=== PATIENT | female | born 1965 | race Caucasian/White ===

== ENCOUNTER 2016-05-29 08:35 | Emergency (ER) | payer MEDICAID ==
[~2016-05-29] VITALS: Ht 167.6 cm; Wt 78.1 kg
[~2016-05-29 08:35] MED LIST: EFFE25TA; NORCO 325 MG-51 TAB PO; PREDNISONE20 MG PO; PROZAC 20MG20 MG PO; SEROQUEL 1100 MG/TAB PO; SINGULAIR 110 MG/TAB PO; SPRINTEC 35 MCG1 TAB PO; ULTRAM 50MG TAB50 MG PO; ZOFRAN8 MG PO
[2016-05-29 08:40] VITALS: BP 134/90; PULSE 91; TEMP 98
[2016-05-29] MEDS ORDERED: DOXYCYCLINE 10100 MG PO (09:12)
[2016-05-29] MEDS ORDERED: TUSS PO (09:12)
[2016-05-29] MEDS ORDERED: PREDNISONE20 MG PO (09:12)
[2016-05-29] MEDS ORDERED: BRINTELLIX5 PO (09:23)
[2016-05-29] MEDS ORDERED: ZANTAC 150MG T150 MG PO (09:23)
[2016-05-29] MEDS ORDERED: AMBIEN 5MG TABLE5 MG PO (09:23)
[2016-05-29] MEDS ORDERED: ABILIFY2 MG PO (09:24)
[2016-05-29] MEDS ORDERED: MINIPRESS2 MG PO (09:24)
== END 2016-05-29 09:56 | disposition home or self-care (01) ==
LOC: COL.ER 08:35
DX: J44.0 Chronic obstructive pulmonary disease with (acute) lower respiratory infection (principal); J20.9 Acute bronchitis, unspecified; J44.1 Chronic obstructive pulmonary disease with (acute) exacerbation; F17.210 Nicotine dependence, cigarettes, uncomplicated; J45.909 Unspecified asthma, uncomplicated; N93.9 Abnormal uterine and vaginal bleeding, unspecified
CPT/HCPCS: J7512

== ENCOUNTER 2016-06-15 16:28 | Emergency (ER) | payer MEDICAID ==
[~2016-06-15] VITALS: Ht 167.6 cm; Wt 77.8 kg
[~2016-06-15 16:28] MED LIST changes: +ABILIFY2 MG PO; +AMBIEN 5MG TABLE5 MG PO; +BRINTELLIX5 PO; +DOXYCYCLINE 10100 MG PO; +MINIPRESS2 MG PO; +TUSS PO; +ZANTAC 150MG T150 MG PO
[2016-06-15 16:31] VITALS: BP 110/96; TEMP 99.6
[2016-06-15 16:54] LABS: PH 5 (5-8); SQUAMOUS EPITHELIAL 0-2 /hpf; URINE APPEARANCE Hazy; URINE BACTERIA None Seen /hpf; URINE BILIRUBIN Negative (NEGATIVE); URINE BLOOD 1+ (NEGATIVE); URINE COLOR Yellow; URINE GLUCOSE Negative (NEGATIVE); URINE KETONE Negative (NEGATIVE); URINE UROBILINOGEN Negative (NEGATIVE); URINE WBC 0-2 /hpf
[2016-06-15 17:10] LABS: BASO % 0.4 % (0.0-2.0); EOS # 0.1 (0.0-0.7); EOS % 0.6 % (0-4.0); GRAN # 5.3 (1.4-6.5); GRAN % 62.3 % (42.2-75.2); HEMOGLOBIN 13.2 g/dl (12.5-16.0); LYMPH # 2.7 (1.2-3.4); LYMPH % 31.6 % (20.0-51.0); MEAN CELL VOLUME 93 fl (80.0-100.0); MEAN CORPUSCULAR HEMOGLOBIN 32 pg (27.0-31.0); MEAN CORPUSCULAR HGB CONC 35 g/dl (33.0-37.0); MEAN PLATELET VOLUME 8.8 fl (7.4-10.4); MONO # 0.4 (0.1-0.6); MONO % 4.7 % (1.7-9.3); PLATELET COUNT 239 K/mm3 (130-400); RED BLOOD COUNT 4.07 M/mm3 (4.10-5.30); REDCELL DISTRIBUTION WIDTH-CV 12.5 % (11.5-14.5); WHITE BLOOD COUNT 8.5 K/mm3 (4.8-10.8)
[2016-06-15 17:19] LABS: ADJUSTED CALCIUM 8.6 mg/dL (8.4-10.2); ALBUMIN 4.2 gm/dL (3.5-5.0); BILIRUBIN,TOTAL 0.8 mg/dL (0.0-1.0); CALCIUM 8.8 mg/dL (8.4-10.2); CREATININE, serum 0.61 mg/dL (0.52-1.25); POTASSIUM 4.1 mmol/L (3.4-5.0); TOTAL PROTEIN 7.2 gm/dL (6.4-8.2)
[2016-06-15 17:24] LABS: INFLUENZA B NEGATIVE
[2016-06-15] MEDS ORDERED: PRILOSEC 20MG20 MG PO ×2 (17:39→17:48)
[2016-06-15] MEDS ORDERED: ZOFRAN ODT4 MG PO ×2 (17:39→17:48)
[2016-06-15 17:49] VITALS: PULSE 72
== END 2016-06-15 17:50 | disposition home or self-care (01) ==
LOC: COL.ER 16:28
PROVIDERS: Family Medicine
DX: K29.70 Gastritis, unspecified, without bleeding (principal); F17.210 Nicotine dependence, cigarettes, uncomplicated
CPT/HCPCS: J2405; J7030

== ENCOUNTER 2016-06-25 17:25 | Emergency (ER) | payer MEDICAID ==
[~2016-06-25] VITALS: Ht 167.6 cm; Wt 79.4 kg
[~2016-06-25 17:25] MED LIST changes: +PRILOSEC 20MG20 MG PO; +ZOFRAN ODT4 MG PO
[2016-06-25 17:28] VITALS: TEMP 97.6
[2016-06-25] MEDS ORDERED: BRINTELLIX10 PO (18:13)
[2016-06-25] MEDS ORDERED: ATIVAN 0.50.5 MG/TAB PO (18:21)
[2016-06-25 18:36] VITALS: BP 128/86; PULSE 86
== END 2016-06-25 18:36 | disposition home or self-care (01) ==
LOC: COL.ER 17:25
DX: F41.9 Anxiety disorder, unspecified (principal); R51 Headache; F17.210 Nicotine dependence, cigarettes, uncomplicated
CPT/HCPCS: J1885

== ENCOUNTER 2016-06-30 19:51 | Emergency (ER) | payer MEDICAID ==
[~2016-06-30] VITALS: Ht 167.6 cm; Wt 79.9 kg
[~2016-06-30 19:51] MED LIST changes: +ATIVAN 0.50.5 MG/TAB PO; +BRINTELLIX10 PO
[2016-06-30 19:55] VITALS: BP 118/64; PULSE 88; TEMP 97.8
== END 2016-06-30 21:07 | disposition left against medical advice (07) ==
LOC: COL.ER 19:51
DX: R05 Cough (principal)

== ENCOUNTER 2016-07-01 23:59 | Emergency (ER) | payer MEDICAID ==
[~2016-07-01] VITALS: Ht 167.6 cm; Wt 78.1 kg
[2016-07-02] VITALS: TEMP 98.8
[2016-07-02] MEDS ORDERED: PREDNISONE20 MG PO (01:23)
[2016-07-02] MEDS ORDERED: ATIVAN 1MG T1 MG/TAB PO (01:32)
[2016-07-02 01:35] VITALS: BP 114/76; PULSE 75
== END 2016-07-02 01:40 | disposition home or self-care (01) ==
LOC: COL.ER 23:59
DX: J20.9 Acute bronchitis, unspecified (principal); F17.210 Nicotine dependence, cigarettes, uncomplicated; J45.909 Unspecified asthma, uncomplicated; F41.9 Anxiety disorder, unspecified
CPT/HCPCS: J7512

== ENCOUNTER 2016-07-15 10:30 | Emergency (ER) | payer MEDICAID ==
[~2016-07-15] VITALS: Ht 167.6 cm; Wt 78.2 kg
[~2016-07-15 10:30] MED LIST changes: +ATIVAN 1MG T1 MG/TAB PO
[2016-07-15 10:33] VITALS: BP 123/74; PULSE 81; TEMP 98
[2016-07-15 11:14] LABS: BASO % 0.4 % (0.0-2.0); EOS # 0.1 (0.0-0.7); EOS % 0.9 % (0-4.0); GRAN # 7.7 (1.4-6.5); GRAN % 74.4 % (42.2-75.2); HEMATOCRIT 42.8 % (37.0-47.0); HEMOGLOBIN 14.8 g/dl (12.5-16.0); LYMPH # 2.1 (1.2-3.4); LYMPH % 20.4 % (20.0-51.0); MEAN CELL VOLUME 93 fl (80.0-100.0); MEAN CORPUSCULAR HEMOGLOBIN 32 pg (27.0-31.0); MEAN CORPUSCULAR HGB CONC 35 g/dl (33.0-37.0); MEAN PLATELET VOLUME 8.7 fl (7.4-10.4); MONO # 0.4 (0.1-0.6); MONO % 3.7 % (1.7-9.3); PLATELET COUNT 220 K/mm3 (130-400); WHITE BLOOD COUNT 10.4 K/mm3 (4.8-10.8)
[2016-07-15] MEDS ORDERED: SEROQUEL50 MG PO (11:17)
[2016-07-15 11:41] LABS: ADJUSTED CALCIUM 9.2 mg/dL (8.4-10.2); ALBUMIN 4.2 gm/dL (3.5-5.0); BILIRUBIN,TOTAL 0.7 mg/dL (0.0-1.0); CALCIUM 9.4 mg/dL (8.4-10.2); CREATININE, serum 0.75 mg/dL (0.52-1.25); POTASSIUM 4.1 mmol/L (3.4-5.0); TOTAL PROTEIN 6.9 gm/dL (6.4-8.2)
[2016-07-15] MEDS ORDERED: PHENERGAN 25 TA25 MG PO (12:18)
== END 2016-07-15 12:33 | disposition home or self-care (01) ==
LOC: COL.ER 10:30
PROVIDERS: Physician Assistant
DX: G43.909 Migraine, unspecified, not intractable, without status migrainosus (principal); R11.2 Nausea with vomiting, unspecified; R19.7 Diarrhea, unspecified
CPT/HCPCS: J1885; J2060; J2550; J7030

== ENCOUNTER 2016-08-06 23:24 | Emergency (ER) | payer MEDICAID ==
[~2016-08-06] VITALS: Ht 165.1 cm; Wt 80.5 kg
[~2016-08-06 23:24] MED LIST changes: +PHENERGAN 25 TA25 MG PO; +SEROQUEL50 MG PO
[2016-08-06 23:28] VITALS: BP 99/52; TEMP 97.5
[2016-08-07] MEDS ORDERED: PHENERGAN 25 TA25 MG PO (00:08)
[2016-08-07 00:34] VITALS: PULSE 75
== END 2016-08-07 00:34 | disposition home or self-care (01) ==
LOC: COL.ER 23:24
DX: R51 Headache (principal); R05 Cough; Z87.891 Personal history of nicotine dependence; F41.9 Anxiety disorder, unspecified; J44.9 Chronic obstructive pulmonary disease, unspecified; F43.10 Post-traumatic stress disorder, unspecified; G43.909 Migraine, unspecified, not intractable, without status migrainosus
CPT/HCPCS: J1885; J7512

== ENCOUNTER 2016-08-26 17:35 | Emergency (ER) | payer MEDICAID ==
[~2016-08-26] VITALS: Ht 165.1 cm; Wt 79.8 kg
[2016-08-26 17:38] VITALS: TEMP 98.4
[2016-08-26] MEDS ORDERED: KLONOPIN 0.5MG0.5 MG PO (17:56)
[2016-08-26] MEDS ORDERED: PROZAC 20MG20 MG PO (17:57)
[2016-08-26 18:07] LABS: PH 5 (5-8); URINE APPEARANCE Cloudy; URINE BACTERIA None Seen /hpf; URINE BILIRUBIN Negative (NEGATIVE); URINE BLOOD 3+ (NEGATIVE); URINE COLOR Amber; URINE GLUCOSE Negative (NEGATIVE); URINE KETONE Negative (NEGATIVE); URINE RBC >50 /hpf; URINE UROBILINOGEN Negative (NEGATIVE)
[2016-08-26 18:08] LABS: URINE WBC >50 /hpf
[2016-08-26] MEDS ORDERED: MACROBID 1100 MG/CAP PO (18:15)
[2016-08-26] MEDS ORDERED: PYRIDIUM200 M1 PO (18:15)
[2016-08-26 18:47] VITALS: BP 97/63; PULSE 76
[2016-08-26] MEDS ORDERED: MOTRIN 600600 MG/TAB PO (18:47)
== END 2016-08-26 18:48 | disposition home or self-care (01) ==
LOC: COL.ER 17:35
PROVIDERS: Emergency Medicine
DX: N39.0 Urinary tract infection, site not specified (principal)
CPT/HCPCS: J1885

== ENCOUNTER 2016-09-03 11:53 | Emergency (ER) | payer MEDICAID ==
[~2016-09-03] VITALS: Ht 165.1 cm; Wt 81.2 kg
[~2016-09-03 11:53] MED LIST changes: +KLONOPIN 0.5MG0.5 MG PO; +MACROBID 1100 MG/CAP PO; +MOTRIN 600600 MG/TAB PO; +PYRIDIUM200 M1 PO
[2016-09-03 11:56] VITALS: BP 115/57; PULSE 71; TEMP 98.4
== END 2016-09-03 12:41 | disposition left against medical advice (07) ==
LOC: COL.ER 11:53
DX: N94.6 Dysmenorrhea, unspecified (principal); F32.9 Major depressive disorder, single episode, unspecified; F41.9 Anxiety disorder, unspecified; J44.9 Chronic obstructive pulmonary disease, unspecified; F17.210 Nicotine dependence, cigarettes, uncomplicated; Z85.41 Personal history of malignant neoplasm of cervix uteri; Z98.51 Tubal ligation status; Z98.890 Other specified postprocedural states

== ENCOUNTER 2016-10-07 07:47 | Emergency (ER) | payer MEDICAID ==
[~2016-10-07] VITALS: Ht 167.6 cm; Wt 80.6 kg
[2016-10-07 07:49] VITALS: BP 103/70; PULSE 72; TEMP 97.9
[2016-10-07] MEDS ORDERED: KLONOPIN 0.5MG0.5 MG PO (08:11)
== END 2016-10-07 08:29 | disposition home or self-care (01) ==
LOC: COL.ER 07:47
DX: F41.9 Anxiety disorder, unspecified (principal); T42.4X6A Underdosing of benzodiazepines, initial encounter; Z91.138 Patient's unintentional underdosing of medication regimen for other reason; K52.1 Toxic gastroenteritis and colitis; R11.0 Nausea

== ENCOUNTER 2016-10-13 16:06 | Emergency (ER) | payer MEDICAID ==
[~2016-10-13] VITALS: Ht 170.2 cm; Wt 81.5 kg
[2016-10-13 16:07] VITALS: BP 102/56; PULSE 90; TEMP 98
== END 2016-10-13 17:49 | disposition home or self-care (01) ==
LOC: COL.ER 16:06
DX: F41.9 Anxiety disorder, unspecified (principal); J44.9 Chronic obstructive pulmonary disease, unspecified; F31.9 Bipolar disorder, unspecified; F17.200 Nicotine dependence, unspecified, uncomplicated; Z85.41 Personal history of malignant neoplasm of cervix uteri

== ENCOUNTER 2016-12-19 09:57 | Emergency (ER) | payer MEDICAID ==
[~2016-12-19] VITALS: Ht 167.6 cm; Wt 82.3 kg
[2016-12-19 10:02] VITALS: BP 122/71; PULSE 70; TEMP 98.2
[2016-12-19] MEDS ORDERED: SINGULAIR 110 MG/TAB PO (10:07)
[2016-12-19] MEDS ORDERED: ATARAX50 MG PO (10:07)
[2016-12-19] MEDS ORDERED: PRIL40 PO (10:07)
[2016-12-19] MEDS ORDERED: PROZAC 20MG20 MG PO (10:07)
[2016-12-19 10:54] LABS: BASO % 0.5 % (0.0-2.0); EOS # 0.1 (0.0-0.7); EOS % 1.7 % (0-4.0); GRAN # 4.5 (1.4-6.5); GRAN % 61.2 % (42.2-75.2); HEMATOCRIT 38.2 % (37.0-47.0); HEMOGLOBIN 12.9 g/dl (12.5-16.0); LYMPH # 2.3 (1.2-3.4); LYMPH % 30.8 % (20.0-51.0); MEAN CELL VOLUME 92 fl (80.0-100.0); MEAN CORPUSCULAR HEMOGLOBIN 31 pg (27.0-31.0); MEAN CORPUSCULAR HGB CONC 34 g/dl (33.0-37.0); MEAN PLATELET VOLUME 9.1 fl (7.4-10.4); MONO # 0.4 (0.1-0.6); MONO % 5.5 % (1.7-9.3); PLATELET COUNT 280 K/mm3 (130-400); RED BLOOD COUNT 4.15 M/mm3 (4.10-5.30); REDCELL DISTRIBUTION WIDTH-CV 12.8 % (11.5-14.5); WHITE BLOOD COUNT 7.4 K/mm3 (4.8-10.8)
[2016-12-19] MEDS ORDERED: PHENERGAN 25 TA25 MG PO (11:49)
[2016-12-19 13:15] LABS: ADJUSTED CALCIUM 8.9 mg/dL (8.4-10.2); ALBUMIN 4.4 gm/dL (3.5-5.0); BILIRUBIN,TOTAL 0.6 mg/dL (0.0-1.0); CALCIUM 9.2 mg/dL (8.4-10.2); CREATININE, serum 0.73 mg/dL (0.52-1.25); POTASSIUM 4.4 mmol/L (3.4-5.0); TOTAL PROTEIN 7.7 gm/dL (6.4-8.2)
[2016-12-19 13:21] LABS: PH 6 (5-8); SQUAMOUS EPITHELIAL None Seen /hpf; URINE APPEARANCE Clear; URINE BACTERIA Rare /hpf; URINE BILIRUBIN Negative (NEGATIVE); URINE BLOOD 1+ (NEGATIVE); URINE COLOR Straw; URINE GLUCOSE Negative (NEGATIVE); URINE KETONE Negative (NEGATIVE); URINE RBC None Seen /hpf; URINE UROBILINOGEN Negative (NEGATIVE); URINE WBC 0-2 /hpf
== END 2016-12-19 13:45 | disposition home or self-care (01) ==
LOC: COL.ER 09:57
PROVIDERS: Emergency Medicine; Physician Assistant
DX: R19.7 Diarrhea, unspecified (principal); R11.10 Vomiting, unspecified; J44.9 Chronic obstructive pulmonary disease, unspecified; Z90.710 Acquired absence of both cervix and uterus
CPT/HCPCS: J1170; J2550; J7030

== ENCOUNTER 2017-01-05 13:52 | Emergency (ER) | payer MEDICAID ==
[~2017-01-05] VITALS: Ht 170.2 cm; Wt 82.2 kg
[~2017-01-05 13:52] MED LIST changes: +ATARAX50 MG PO; +PRIL40 PO
[2017-01-05 13:56] VITALS: TEMP 98
[2017-01-05 15:03] LABS: PH 6 (5-8); URINE APPEARANCE Clear; URINE BACTERIA None Seen /hpf; URINE BILIRUBIN Negative (NEGATIVE); URINE BLOOD 1+ (NEGATIVE); URINE COLOR Yellow; URINE GLUCOSE Negative (NEGATIVE); URINE KETONE Negative (NEGATIVE); URINE RBC 0-2 /hpf; URINE UROBILINOGEN Negative (NEGATIVE); URINE WBC 0-2 /hpf
[2017-01-05 15:06] LABS: BASO % 0.5 % (0.0-2.0); EOS # 0.1 (0.0-0.7); EOS % 1.1 % (0-4.0); GRAN # 4.6 (1.4-6.5); GRAN % 57.8 % (42.2-75.2); HEMATOCRIT 38.3 % (37.0-47.0); HEMOGLOBIN 13.1 g/dl (12.5-16.0); LYMPH # 2.8 (1.2-3.4); LYMPH % 34.9 % (20.0-51.0); MEAN CELL VOLUME 91 fl (80.0-100.0); MEAN CORPUSCULAR HEMOGLOBIN 31 pg (27.0-31.0); MEAN CORPUSCULAR HGB CONC 34 g/dl (33.0-37.0); MEAN PLATELET VOLUME 10.2 fl (7.4-10.4); MONO # 0.4 (0.1-0.6); MONO % 5.4 % (1.7-9.3); PLATELET COUNT 323 K/mm3 (130-400); RED BLOOD COUNT 4.22 M/mm3 (4.10-5.30); REDCELL DISTRIBUTION WIDTH-CV 13.5 % (11.5-14.5); WHITE BLOOD COUNT 7.9 K/mm3 (4.8-10.8)
[2017-01-05 15:46] LABS: ALANINE AMINOTRANSFERASE 23 U/L (9-52); ALBUMIN 4.2 gm/dL (3.5-5.0); ALKALINE PHOSPHATASE 77 U/L (50-136); ANION GAP 8 mmol/L (7-16); BILIRUBIN,TOTAL 0.6 mg/dL (0.0-1.0); BLOOD UREA NITROGEN 12 mg/dL (7-17); CALCIUM 9.2 mg/dL (8.4-10.2); CARBON DIOXIDE 25 mmol/L (22-30); CHLORIDE 105 mmol/L (98-107); CREATININE, serum 0.74 mg/dL (0.52-1.25); GLUCOSE 79 mg/dL (74-106); LIPASE 102 U/L (23-300); POTASSIUM 3.9 mmol/L (3.4-5.0); SODIUM 138 mmol/L (137-145); TOTAL PROTEIN 7.3 gm/dL (6.4-8.2)
[2017-01-05 15:48] LABS: C-REACTIVE PROTEIN < 0.5 mg/dL (0.0-0.9)
[2017-01-05] MEDS ORDERED: CARAFATE 1GM1 G PO (16:13)
[2017-01-05 16:20] VITALS: BP 121/79; PULSE 66
== END 2017-01-05 16:20 | disposition home or self-care (01) ==
LOC: COL.ER 13:52
PROVIDERS: Emergency Medicine; Physician Assistant
DX: R10.13 Epigastric pain (principal); Z90.710 Acquired absence of both cervix and uterus; F17.210 Nicotine dependence, cigarettes, uncomplicated
CPT/HCPCS: C9113; J2270; J2405; J7030

== ENCOUNTER 2017-01-21 13:01 | Emergency (ER) | payer MEDICAID ==
[~2017-01-21] VITALS: Ht 167.6 cm; Wt 81.8 kg
[~2017-01-21 13:01] MED LIST changes: +CARAFATE 1GM1 G PO
[2017-01-21 13:03] VITALS: TEMP 96.7
[2017-01-21 14:04] VITALS: BP 126/23
[2017-01-21] MEDS ORDERED: PHENERGAN 25 TA25 MG PO (15:13)
[2017-01-21 15:16] VITALS: PULSE 61
== END 2017-01-21 15:17 | disposition home or self-care (01) ==
LOC: COL.ER 13:01
DX: G43.909 Migraine, unspecified, not intractable, without status migrainosus (principal); L72.3 Sebaceous cyst
CPT/HCPCS: J0595; J2550

== ENCOUNTER → 2017-02-16 | Outpatient (CLI) | payer MEDICAID | LOC: COL.RAD 11:04 | DX: N28.1 Cyst of kidney, acquired (principal); R11.0 Nausea; R19.7 Diarrhea, unspecified ==

== ENCOUNTER 2017-04-10 08:55 | Emergency (ER) | payer MEDICAID ==
[~2017-04-10] VITALS: Ht 167.6 cm; Wt 86.8 kg
[2017-04-10 08:58] VITALS: TEMP 98.7
[2017-04-10 09:47] LABS: INFLUENZA A NEGATIVE; INFLUENZA B NEGATIVE
[2017-04-10] MEDS ORDERED: ZITHROMAX Z PA250 MG PO (09:53)
[2017-04-10] MEDS ORDERED: NORCO 325 MG-51 TAB PO (09:53)
[2017-04-10 10:06] VITALS: BP 123/71; PULSE 82
== END 2017-04-10 10:01 | disposition home or self-care (01) ==
LOC: COL.ER 08:55
PROVIDERS: Emergency Medicine
DX: J20.9 Acute bronchitis, unspecified (principal); J44.9 Chronic obstructive pulmonary disease, unspecified; F17.210 Nicotine dependence, cigarettes, uncomplicated
CPT/HCPCS: J7512

== ENCOUNTER 2017-05-06 22:47 | Emergency (ER) | payer MEDICAID ==
[~2017-05-06] VITALS: Ht 167.6 cm; Wt 85.9 kg
[~2017-05-06 22:47] MED LIST changes: +ZITHROMAX Z PA250 MG PO
[2017-05-06 22:54] VITALS: BP 111/80; PULSE 82; TEMP 97.9
[2017-05-06 23:27] LABS: COLLECTION METHOD CLEAN CATCH
[2017-05-06 23:35] LABS: PH 5 (5-8); URINE APPEARANCE Cloudy; URINE BILIRUBIN Negative (NEGATIVE); URINE COLOR Yellow; URINE GLUCOSE Negative (NEGATIVE); URINE KETONE Negative (NEGATIVE); URINE PROTEIN(semi-quant) 3+ (NEGATIVE)
[2017-05-06 23:36] LABS: URINE BLOOD 3+ (NEGATIVE); URINE LEUKOCYTE ESTERASE 2+ (NEGATIVE); URINE NITRATE Negative (NEGATIVE); URINE UROBILINOGEN Negative (NEGATIVE)
[2017-05-06 23:37] LABS: URINE RBC >50 /hpf
[2017-05-06 23:38] LABS: URINE BACTERIA Rare /hpf
[2017-05-06] MEDS ORDERED: MACROBID 1100 MG/CAP PO (23:54)
[2017-05-06] MEDS ORDERED: PYRIDIUM 100MG100 MG PO (23:54)
== END 2017-05-07 00:01 | disposition home or self-care (01) ==
LOC: COL.ER 22:47
PROVIDERS: Physician Assistant
DX: N39.0 Urinary tract infection, site not specified (principal); F17.210 Nicotine dependence, cigarettes, uncomplicated

== ENCOUNTER 2017-06-02 22:27 | Emergency (ER) | payer MEDICAID ==
[~2017-06-02] VITALS: Ht 167.6 cm; Wt 88.2 kg
[~2017-06-02 22:27] MED LIST changes: +PYRIDIUM 100MG100 MG PO
[2017-06-02 22:29] VITALS: BP 117/59; TEMP 96.9
[2017-06-02 22:36] LABS: COLLECTION METHOD CLEAN CATCH
[2017-06-02 22:48] LABS: MUCOUS Present /lpf; PH 5 (5-8); SQUAMOUS EPITHELIAL None Seen /hpf; URINE APPEARANCE Turbid; URINE BACTERIA Occasional /hpf; URINE BILIRUBIN Negative (NEGATIVE); URINE BLOOD 3+ (NEGATIVE); URINE COLOR Yellow; URINE GLUCOSE Negative (NEGATIVE); URINE KETONE Negative (NEGATIVE); URINE LEUKOCYTE ESTERASE 2+ (NEGATIVE); URINE NITRATE Negative (NEGATIVE); URINE PROTEIN(semi-quant) 3+ (NEGATIVE); URINE RBC >50 /hpf; URINE UROBILINOGEN Negative (NEGATIVE)
[2017-06-02] MEDS ORDERED: LUNESTA3 MG PO (22:49)
[2017-06-02] MEDS ORDERED: REXULTI1 MG PO (22:49)
[2017-06-02] MEDS ORDERED: KLONOPIN 1MG1 MG PO (22:49)
[2017-06-02] MEDS ORDERED: PYRIDIUM200 M1 PO (23:24)
[2017-06-02] MEDS ORDERED: CEFTIN 250250 MG/TAB PO (23:24)
[2017-06-02 23:35] VITALS: PULSE 80
== END 2017-06-02 23:36 | disposition home or self-care (01) ==
LOC: COL.ER 22:27
PROVIDERS: Nurse Practitioner
DX: N39.0 Urinary tract infection, site not specified (principal); J44.9 Chronic obstructive pulmonary disease, unspecified; F32.9 Major depressive disorder, single episode, unspecified; F41.9 Anxiety disorder, unspecified; F43.10 Post-traumatic stress disorder, unspecified; F17.210 Nicotine dependence, cigarettes, uncomplicated; Z90.710 Acquired absence of both cervix and uterus; Z98.890 Other specified postprocedural states

== ENCOUNTER 2017-06-17 13:09 | Emergency (ER) | payer MEDICAID ==
[~2017-06-17] VITALS: Ht 167.6 cm; Wt 87.2 kg
[~2017-06-17 13:09] MED LIST changes: +CEFTIN 250250 MG/TAB PO; +KLONOPIN 1MG1 MG PO; +LUNESTA3 MG PO; +REXULTI1 MG PO
[2017-06-17 13:26] VITALS: TEMP 98
[2017-06-17 14:33] LABS: BASO % 0.3 % (0.0-2.0); EOS # 0.1 (0.0-0.7); EOS % 1.3 % (0-4.0); GRAN # 3.8 (1.4-6.5); GRAN % 55.2 % (42.2-75.2); LYMPH # 2.5 (1.2-3.4); LYMPH % 36.8 % (20.0-51.0); MEAN CELL VOLUME 92 fl (80.0-100.0); MEAN CORPUSCULAR HEMOGLOBIN 32 pg (27.0-31.0); MEAN CORPUSCULAR HGB CONC 34 g/dl (33.0-37.0); MEAN PLATELET VOLUME 8.9 fl (7.4-10.4); MONO # 0.4 (0.1-0.6); MONO % 6.3 % (1.7-9.3); PLATELET COUNT 247 K/mm3 (130-400); RED BLOOD COUNT 4.44 M/mm3 (4.10-5.30); REDCELL DISTRIBUTION WIDTH-CV 13.2 % (11.5-14.5)
[2017-06-17 14:46] LABS: ALANINE AMINOTRANSFERASE 26 U/L (9-52); ALBUMIN 4.5 gm/dL (3.5-5.0); ALKALINE PHOSPHATASE 76 U/L (50-136); ANION GAP 12 mmol/L (7-16); AST,SGOT 19 U/L (15-37); BILIRUBIN,TOTAL 0.4 mg/dL (0.0-1.0); BLOOD UREA NITROGEN 15 mg/dL (7-17); CALCIUM 9.3 mg/dL (8.4-10.2); CARBON DIOXIDE 24 mmol/L (22-30); CHLORIDE 104 mmol/L (98-107); CREATININE, serum 0.76 mg/dL (0.52-1.25); GLUCOSE 71 mg/dL (74-106); LIPASE 124 U/L (23-300); POTASSIUM 4.4 mmol/L (3.4-5.0); SODIUM 140 mmol/L (137-145); TOTAL PROTEIN 7.2 gm/dL (6.4-8.2)
[2017-06-17 14:58] LABS: TROPONIN-I < 0.012 ng/mL (0.000-0.034)
[2017-06-17] MEDS ORDERED: VALIUM 2MG T2 MG/TAB PO (15:34)
[2017-06-17] MEDS ORDERED: PYRIDIUM 100MG100 MG PO (15:47)
[2017-06-17 16:02] VITALS: BP 115/77; PULSE 85
== END 2017-06-17 16:05 | disposition home or self-care (01) ==
LOC: COL.ER 13:09
PROVIDERS: Physician Assistant
DX: G24.01 Drug induced subacute dyskinesia (principal); T43.595A Adverse effect of other antipsychotics and neuroleptics, initial encounter; M62.838 Other muscle spasm; F32.9 Major depressive disorder, single episode, unspecified; F41.9 Anxiety disorder, unspecified; F17.210 Nicotine dependence, cigarettes, uncomplicated
CPT/HCPCS: J1200; J2060; J2270

== ENCOUNTER 2017-07-15 08:04 | Emergency (ER) | payer MEDICAID ==
[~2017-07-15] VITALS: Ht 165.1 cm; Wt 86.8 kg
[~2017-07-15 08:04] MED LIST changes: +VALIUM 2MG T2 MG/TAB PO
[2017-07-15 08:09] VITALS: TEMP 97
[2017-07-15] MEDS ORDERED: KLONOPIN 1MG1 MG PO (08:12)
[2017-07-15 08:34] LABS: COLLECTION METHOD CLEAN CATCH
[2017-07-15 08:41] LABS: MUCOUS Present /lpf; PH 6 (5-8); SQUAMOUS EPITHELIAL 0-2 /hpf; URINE APPEARANCE Clear; URINE BACTERIA None Seen /hpf; URINE BILIRUBIN Negative (NEGATIVE); URINE BLOOD Negative (NEGATIVE); URINE COLOR Straw; URINE GLUCOSE Negative (NEGATIVE); URINE KETONE Negative (NEGATIVE); URINE LEUKOCYTE ESTERASE Negative (NEGATIVE); URINE NITRATE Negative (NEGATIVE); URINE PROTEIN(semi-quant) Negative (NEGATIVE); URINE RBC 0-2 /hpf; URINE UROBILINOGEN Negative (NEGATIVE)
[2017-07-15 08:52] LABS: BASO % 0.4 % (0.0-2.0); EOS # 0.1 (0.0-0.7); EOS % 1.8 % (0-4.0); GRAN # 4.6 (1.4-6.5); GRAN % 65.1 % (42.2-75.2); HEMATOCRIT 42.4 % (37.0-47.0); HEMOGLOBIN 14.4 g/dl (12.5-16.0); LYMPH # 1.8 (1.2-3.4); LYMPH % 24.9 % (20.0-51.0); MEAN CELL VOLUME 92 fl (80.0-100.0); MEAN CORPUSCULAR HEMOGLOBIN 31 pg (27.0-31.0); MEAN CORPUSCULAR HGB CONC 34 g/dl (33.0-37.0); MONO # 0.6 (0.1-0.6); MONO % 7.7 % (1.7-9.3); PLATELET COUNT 251 K/mm3 (130-400); RED BLOOD COUNT 4.62 M/mm3 (4.10-5.30); REDCELL DISTRIBUTION WIDTH-CV 13.9 % (11.5-14.5)
[2017-07-15 09:04] LABS: ALANINE AMINOTRANSFERASE 27 U/L (9-52); ALBUMIN 4.4 gm/dL (3.5-5.0); ALKALINE PHOSPHATASE 97 U/L (50-136); ANION GAP 12 mmol/L (7-16); AST,SGOT 24 U/L (15-37); BILIRUBIN,TOTAL 0.6 mg/dL (0.0-1.0); BLOOD UREA NITROGEN 17 mg/dL (7-17); CALCIUM 9.4 mg/dL (8.4-10.2); CARBON DIOXIDE 27 mmol/L (22-30); CHLORIDE 103 mmol/L (98-107); CREATININE, serum 0.71 mg/dL (0.52-1.25); GLUCOSE 96 mg/dL (74-106); POTASSIUM 4.2 mmol/L (3.4-5.0); SODIUM 143 mmol/L (137-145); TOTAL PROTEIN 8.4 gm/dL (6.4-8.2)
[2017-07-15 09:12] LABS: C-REACTIVE PROTEIN < 0.5 mg/dL (0.0-0.9)
[2017-07-15] MEDS ORDERED: ZOFRAN ODT4 MG PO (09:33)
[2017-07-15 10:18] VITALS: BP 134/90; PULSE 67
== END 2017-07-15 10:19 | disposition home or self-care (01) ==
LOC: COL.ER 08:04
PROVIDERS: Physician Assistant
DX: A08.4 Viral intestinal infection, unspecified (principal); R05 Cough; F41.9 Anxiety disorder, unspecified; F32.9 Major depressive disorder, single episode, unspecified; F17.210 Nicotine dependence, cigarettes, uncomplicated; Z98.51 Tubal ligation status; Z90.710 Acquired absence of both cervix and uterus
CPT/HCPCS: J1885; J2405; J7030

== ENCOUNTER 2017-08-05 22:49 | Emergency (ER) | payer MEDICAID ==
[~2017-08-05] VITALS: Ht 167.6 cm; Wt 86.4 kg
[2017-08-05 22:51] VITALS: TEMP 97.8
[2017-08-05] MEDS ORDERED: AMBIEN 10MG10 MG PO (22:53)
[2017-08-05] MEDS ORDERED: PRIL40 PO (22:53)
[2017-08-06] MEDS ORDERED: NORCO 325 MG-7.1 TAB PO (00:55)
[2017-08-06] MEDS ORDERED: LIDODERM 5% PATC1 EA TP (01:25)
[2017-08-06 01:28] VITALS: BP 128/67; PULSE 78
[2017-08-06] MEDS ORDERED: PERCOCET 325 MG1 TA3 PO (20:31)
[2017-08-06] MEDS ORDERED: TESSALON P100 MG/CAP PO (20:31)
== END 2017-08-06 01:28 | disposition home or self-care (01) ==
LOC: COL.ER 22:49
DX: S22.42XA Multiple fractures of ribs, left side, initial encounter for closed fracture (principal); R40.2412 Glasgow coma scale score 13-15, at arrival to emergency department; K21.9 Gastro-esophageal reflux disease without esophagitis; F32.9 Major depressive disorder, single episode, unspecified; F17.210 Nicotine dependence, cigarettes, uncomplicated; W18.39XA Other fall on same level, initial encounter; W22.8XXA Striking against or struck by other objects, initial encounter; Y92.009 Unspecified place in unspecified non-institutional (private) residence as the place of occurrence of the external cause
CPT/HCPCS: J1170; J1885

== ENCOUNTER 2017-08-06 19:08 | Emergency (ER) | payer MEDICAID ==
[~2017-08-06] VITALS: Ht 167.6 cm; Wt 86.4 kg
[~2017-08-06 19:08] MED LIST changes: +AMBIEN 10MG10 MG PO; +LIDODERM 5% PATC1 EA TP; +NORCO 325 MG-7.1 TAB PO
[2017-08-06 19:11] VITALS: BP 126/58; TEMP 98.3
[2017-08-06] MEDS ORDERED: TESSALON P100 MG/CAP PO (20:31)
[2017-08-06] MEDS ORDERED: PERCOCET 325 MG1 TA3 PO (20:31)
[2017-08-06 20:57] VITALS: PULSE 58
== END 2017-08-06 20:59 | disposition home or self-care (01) ==
LOC: COL.ER 19:08
DX: S22.42XA Multiple fractures of ribs, left side, initial encounter for closed fracture (principal); F17.210 Nicotine dependence, cigarettes, uncomplicated; W01.198A Fall on same level from slipping, tripping and stumbling with subsequent striking against other object, initial encounter; Y92.009 Unspecified place in unspecified non-institutional (private) residence as the place of occurrence of the external cause

== ENCOUNTER 2017-08-09 21:03 | Inpatient (IN) | payer MEDICAID ==
[~2017-08-09] VITALS: Ht 167.6 cm; Wt 92.3 kg
[~2017-08-09 21:03] MED LIST changes: +PERCOCET 325 MG1 TA3 PO; +TESSALON P100 MG/CAP PO
[2017-08-09 21:40] LABS: BASO % 0.4 % (0.0-2.0); EOS # 0.2 (0.0-0.7); EOS % 2.3 % (0-4.0); GRAN # 5.4 (1.4-6.5); GRAN % 66.5 % (42.2-75.2); HEMOGLOBIN 12.4 g/dl (12.5-16.0); LYMPH # 1.8 (1.2-3.4); LYMPH % 22.2 % (20.0-51.0); MEAN CELL VOLUME 92 fl (80.0-100.0); MEAN CORPUSCULAR HEMOGLOBIN 32 pg (27.0-31.0); MEAN CORPUSCULAR HGB CONC 34 g/dl (33.0-37.0); MONO # 0.7 (0.1-0.6); MONO % 8.4 % (1.7-9.3); PLATELET COUNT 215 K/mm3 (130-400); RED BLOOD COUNT 3.92 M/mm3 (4.10-5.30); REDCELL DISTRIBUTION WIDTH-CV 14.1 % (11.5-14.5)
[2017-08-09 21:42] LABS: HEMATOCRIT 36.2 % (37.0-47.0)
[2017-08-09 21:50] LABS: CALCIUM 9.2 mg/dL (8.4-10.2); CREATININE, serum 0.66 mg/dL (0.52-1.25); POTASSIUM 4.2 mmol/L (3.4-5.0)
[2017-08-09] MEDS ORDERED: SEROQUEL 1100 MG/TAB PO (22:51)
[2017-08-09] MEDS ORDERED: ALBUTEROL S0.4 MG/ML PO (22:52)
[2017-08-09] MEDS ORDERED: KLONOPIN WAFERS1 MG PO (22:52)
[2017-08-09 23:16] VITALS: BP 135/94; PULSE 89; TEMP 98.2
[2017-08-10] VITALS (7 sets, daily range): BP systolic 118–158; BP diastolic 69–97; PULSE 66–88; TEMP 97.6–98.9
[2017-08-11 03:54] VITALS: BP 126/87; PULSE 97; TEMP 98.3
[2017-08-11 07:59] VITALS: BP 133/80; PULSE 79; TEMP 97.6
[2017-08-11 10:14] VITALS: BP 127/81; PULSE 65
[2017-08-11 15:10] VITALS: BP 115/75; PULSE 70; TEMP 98.4
[2017-08-11 20:15] VITALS: TEMP 98.1
[2017-08-11 20:19] VITALS: BP 115/73; PULSE 80; TEMP 98.4
[2017-08-12 00:04] VITALS: BP 97/67; PULSE 66; TEMP 98.1
[2017-08-12 04:38] VITALS: BP 123/72; PULSE 85; TEMP 98.4
[2017-08-12 08:00] VITALS: TEMP 98
[2017-08-12 08:05] VITALS: BP 122/85; PULSE 83; TEMP 97.7
[2017-08-12 12:24] VITALS: BP 95/53; PULSE 85; TEMP 98
== END 2017-08-12 17:20 | disposition home or self-care (01) | DRG 185 ==
LOC: COL.ER 21:03 → JCC 22:22
PROVIDERS: Emergency Medicine
DX: S22.42XA Multiple fractures of ribs, left side, initial encounter for closed fracture (principal); W18.30XA Fall on same level, unspecified, initial encounter; Z85.41 Personal history of malignant neoplasm of cervix uteri; J44.9 Chronic obstructive pulmonary disease, unspecified; F17.210 Nicotine dependence, cigarettes, uncomplicated
CPT/HCPCS: A9284; G0378; J1170; J1885; J2405; J3010; J7030; J7040

== ENCOUNTER 2017-08-16 16:22 | Emergency (ER) | payer MEDICAID ==
[~2017-08-16] VITALS: Ht 167.6 cm; Wt 88.6 kg
[~2017-08-16 16:22] MED LIST changes: +ALBUTEROL S0.4 MG/ML PO; +KLONOPIN WAFERS1 MG PO
[2017-08-16 16:24] VITALS: BP 118/73; TEMP 98.5
[2017-08-16] MEDS ORDERED: TESSALON P100 MG/CAP PO (16:57)
[2017-08-16 17:26] VITALS: PULSE 90
== END 2017-08-16 17:26 | disposition home or self-care (01) ==
LOC: COL.ER 16:22
DX: S22.42XA Multiple fractures of ribs, left side, initial encounter for closed fracture (principal); J44.9 Chronic obstructive pulmonary disease, unspecified; F41.9 Anxiety disorder, unspecified; F32.9 Major depressive disorder, single episode, unspecified; F17.210 Nicotine dependence, cigarettes, uncomplicated; X58.XXXA Exposure to other specified factors, initial encounter
CPT/HCPCS: J1885

== ENCOUNTER 2017-08-16 22:13 | Emergency (ER) | payer MEDICAID ==
[~2017-08-16] VITALS: Ht 167.6 cm; Wt 88.2 kg
[2017-08-16 22:18] VITALS: BP 144/95; PULSE 97; TEMP 97.8
== END 2017-08-16 23:06 | disposition home or self-care (01) ==
LOC: COL.ER 22:13
DX: S22.32XA Fracture of one rib, left side, initial encounter for closed fracture (principal); R05 Cough; F31.9 Bipolar disorder, unspecified; F17.210 Nicotine dependence, cigarettes, uncomplicated; X58.XXXA Exposure to other specified factors, initial encounter

== ENCOUNTER 2017-09-06 05:27 | Emergency (ER) | payer MEDICAID ==
[~2017-09-06] VITALS: Ht 167.6 cm; Wt 85.5 kg
[2017-09-06 05:32] VITALS: BP 125/75; TEMP 97.5
[2017-09-06] MEDS ORDERED: PROZAC40 MG PO (05:43)
[2017-09-06 06:16] LABS: BASO % 0.6 % (0.0-2.0); EOS # 0.3 (0.0-0.7); EOS % 3.4 % (0-4.0); GRAN # 3.8 (1.4-6.5); GRAN % 52.1 % (42.2-75.2); HEMATOCRIT 40.3 % (37.0-47.0); HEMOGLOBIN 13.8 g/dl (12.5-16.0); LYMPH # 2.8 (1.2-3.4); LYMPH % 37.9 % (20.0-51.0); MEAN CELL VOLUME 92 fl (80.0-100.0); MEAN CORPUSCULAR HEMOGLOBIN 32 pg (27.0-31.0); MEAN CORPUSCULAR HGB CONC 34 g/dl (33.0-37.0); MONO # 0.4 (0.1-0.6); MONO % 5.9 % (1.7-9.3); PLATELET COUNT 243 K/mm3 (130-400); RED BLOOD COUNT 4.36 M/mm3 (4.10-5.30); REDCELL DISTRIBUTION WIDTH-CV 13.4 % (11.5-14.5)
[2017-09-06 06:25] LABS: ALANINE AMINOTRANSFERASE 24 U/L (9-52); ALBUMIN 4.2 gm/dL (3.5-5.0); ALKALINE PHOSPHATASE 103 U/L (50-136); ANION GAP 13 mmol/L (7-16); AST,SGOT 21 U/L (15-37); BILIRUBIN,TOTAL 0.8 mg/dL (0.0-1.0); BLOOD UREA NITROGEN 15 mg/dL (7-17); CALCIUM 9.6 mg/dL (8.4-10.2); CARBON DIOXIDE 24 mmol/L (22-30); CHLORIDE 104 mmol/L (98-107); CREATININE, serum 0.75 mg/dL (0.52-1.25); GLUCOSE 91 mg/dL (74-106); LIPASE 114 U/L (23-300); POTASSIUM 4.3 mmol/L (3.4-5.0); SODIUM 142 mmol/L (137-145); TOTAL PROTEIN 7.7 gm/dL (6.4-8.2)
[2017-09-06 06:41] LABS: TROPONIN-I < 0.012 ng/mL (0.000-0.034)
[2017-09-06] MEDS ORDERED: NORCO 325 MG-51 TAB PO (07:37)
[2017-09-06 08:04] VITALS: PULSE 74
== END 2017-09-06 08:04 | disposition home or self-care (01) ==
LOC: COL.ER 05:27
PROVIDERS: Emergency Medicine
DX: S22.42XA Multiple fractures of ribs, left side, initial encounter for closed fracture (principal); F17.210 Nicotine dependence, cigarettes, uncomplicated; J44.9 Chronic obstructive pulmonary disease, unspecified; Z90.710 Acquired absence of both cervix and uterus; X58.XXXA Exposure to other specified factors, initial encounter
CPT/HCPCS: J1170; J1885; J2405; J7030; Q9967

== ENCOUNTER 2017-09-10 09:34 | Emergency (ER) | payer MEDICAID ==
[~2017-09-10] VITALS: Ht 167.6 cm; Wt 85.6 kg
[~2017-09-10 09:34] MED LIST changes: +PROZAC40 MG PO
[2017-09-10 09:39] VITALS: BP 128/84; TEMP 97.5
[2017-09-10] MEDS ORDERED: NEURONTIN300 MG/CAP PO (10:26)
[2017-09-10] MEDS ORDERED: LIDODERM 5% PATC1 EA TP (10:26)
[2017-09-10 11:38] VITALS: PULSE 65
== END 2017-09-10 11:38 | disposition home or self-care (01) ==
LOC: COL.ER 09:34
DX: S22.32XA Fracture of one rib, left side, initial encounter for closed fracture (principal); F17.210 Nicotine dependence, cigarettes, uncomplicated; Z90.710 Acquired absence of both cervix and uterus; X58.XXXA Exposure to other specified factors, initial encounter; Y92.009 Unspecified place in unspecified non-institutional (private) residence as the place of occurrence of the external cause
CPT/HCPCS: J1885

== ENCOUNTER 2017-09-21 12:43 | Emergency (ER) | payer MEDICAID ==
[~2017-09-21] VITALS: Ht 167.6 cm; Wt 86.8 kg
[~2017-09-21 12:43] MED LIST changes: +NEURONTIN300 MG/CAP PO
[2017-09-21 12:51] VITALS: TEMP 99.1
[2017-09-21 13:24] LABS: BASO % 0.5 % (0.0-2.0); EOS # 0.2 (0.0-0.7); EOS % 3.5 % (0-4.0); GRAN # 3.9 (1.4-6.5); GRAN % 59.4 % (42.2-75.2); HEMATOCRIT 38.9 % (37.0-47.0); HEMOGLOBIN 13.1 g/dl (12.5-16.0); LYMPH % 30.1 % (20.0-51.0); MEAN CELL VOLUME 92 fl (80.0-100.0); MEAN CORPUSCULAR HEMOGLOBIN 31 pg (27.0-31.0); MEAN CORPUSCULAR HGB CONC 34 g/dl (33.0-37.0); MEAN PLATELET VOLUME 8.7 fl (7.4-10.4); MONO # 0.4 (0.1-0.6); MONO % 6.3 % (1.7-9.3); PLATELET COUNT 296 K/mm3 (130-400); RED BLOOD COUNT 4.22 M/mm3 (4.10-5.30); REDCELL DISTRIBUTION WIDTH-CV 13.3 % (11.5-14.5)
[2017-09-21 13:34] LABS: BILIRUBIN,TOTAL 0.6 mg/dL (0.0-1.0); C-REACTIVE PROTEIN 1.3 mg/dL (0.0-0.9); CALCIUM 9.5 mg/dL (8.4-10.2); CREATININE, serum 0.72 mg/dL (0.52-1.25); POTASSIUM 4.1 mmol/L (3.4-5.0); TOTAL PROTEIN 7.6 gm/dL (6.4-8.2)
[2017-09-21 13:48] LABS: COLLECTION METHOD CLEAN CATCH
[2017-09-21 13:54] LABS: MUCOUS Present /lpf; PH 6 (5-8); URINE APPEARANCE Clear; URINE BACTERIA Rare /hpf; URINE BILIRUBIN Negative (NEGATIVE); URINE BLOOD Negative (NEGATIVE); URINE COLOR Yellow; URINE GLUCOSE Negative (NEGATIVE); URINE KETONE Negative (NEGATIVE); URINE LEUKOCYTE ESTERASE Negative (NEGATIVE); URINE NITRATE Negative (NEGATIVE); URINE PROTEIN(semi-quant) Negative (NEGATIVE); URINE RBC 0-2 /hpf; URINE UROBILINOGEN Negative (NEGATIVE)
[2017-09-21] MEDS ORDERED: NORCO 325 MG-51 TAB PO (15:44)
[2017-09-21 16:02] VITALS: BP 111/75; PULSE 74
== END 2017-09-21 16:03 | disposition home or self-care (01) ==
LOC: COL.ER 12:43
PROVIDERS: Nurse Practitioner
DX: S22.42XA Multiple fractures of ribs, left side, initial encounter for closed fracture (principal); R10.11 Right upper quadrant pain; F41.9 Anxiety disorder, unspecified; F32.9 Major depressive disorder, single episode, unspecified; F43.10 Post-traumatic stress disorder, unspecified; Z90.710 Acquired absence of both cervix and uterus; F17.210 Nicotine dependence, cigarettes, uncomplicated; X58.XXXA Exposure to other specified factors, initial encounter
CPT/HCPCS: J3010; Q9967

== ENCOUNTER 2017-09-29 13:42 | Emergency (ER) | payer MEDICAID ==
[~2017-09-29] VITALS: Ht 167.6 cm; Wt 88.2 kg
[2017-09-29 13:48] VITALS: BP 107/74; PULSE 94; TEMP 98.9
[2017-09-29 14:20] LABS: COLLECTION METHOD CLEAN CATCH
[2017-09-29 14:40] LABS: HYALINE CAST >12 /lpf; MUCOUS Present /lpf; PH 5 (5-8); URINE APPEARANCE Turbid; URINE BACTERIA None Seen /hpf; URINE BILIRUBIN Negative (NEGATIVE); URINE BLOOD 3+ (NEGATIVE); URINE COLOR Amber; URINE GLUCOSE Negative (NEGATIVE); URINE KETONE Negative (NEGATIVE); URINE LEUKOCYTE ESTERASE 3+ (NEGATIVE); URINE NITRATE Negative (NEGATIVE); URINE PROTEIN(semi-quant) 2+ (NEGATIVE); URINE RBC >50 /hpf; URINE UROBILINOGEN Negative (NEGATIVE)
[2017-09-29] MEDS ORDERED: CEPHALEXIN500 M1 PO (14:50)
[2017-09-29] MEDS ORDERED: PYRIDIUM200 M1 PO (14:50)
== END 2017-09-29 14:55 | disposition home or self-care (01) ==
LOC: COL.ER 13:42
PROVIDERS: Physician Assistant
DX: N39.0 Urinary tract infection, site not specified (principal); F32.9 Major depressive disorder, single episode, unspecified; F41.9 Anxiety disorder, unspecified; F43.10 Post-traumatic stress disorder, unspecified; F17.210 Nicotine dependence, cigarettes, uncomplicated; Z90.710 Acquired absence of both cervix and uterus; Z98.51 Tubal ligation status

== ENCOUNTER 2017-11-09 20:41 | Emergency (ER) | payer MEDICAID ==
[~2017-11-09] VITALS: Ht 165.1 cm; Wt 86.8 kg
[~2017-11-09 20:41] MED LIST changes: +CEPHALEXIN500 M1 PO
[2017-11-09 20:46] VITALS: BP 134/85; TEMP 98.2
[2017-11-09 20:59] LABS: COLLECTION METHOD CLEAN CATCH
[2017-11-09 21:18] LABS: MUCOUS Present /lpf; PH 5 (5-8); URINE APPEARANCE Clear; URINE BACTERIA None Seen /hpf; URINE BILIRUBIN Negative (NEGATIVE); URINE BLOOD Negative (NEGATIVE); URINE COLOR Yellow; URINE GLUCOSE Negative (NEGATIVE); URINE KETONE Trace (NEGATIVE); URINE LEUKOCYTE ESTERASE Negative (NEGATIVE); URINE NITRATE Negative (NEGATIVE); URINE PROTEIN(semi-quant) Negative (NEGATIVE); URINE RBC 0-2 /hpf; URINE UROBILINOGEN Negative (NEGATIVE)
[2017-11-09] MEDS ORDERED: NAPROSYN500 MG PO (21:30)
[2017-11-09 21:58] VITALS: PULSE 96
== END 2017-11-09 21:58 | disposition home or self-care (01) ==
LOC: COL.ER 20:41
PROVIDERS: Physician Assistant
DX: M76.61 Achilles tendinitis, right leg (principal); B37.3 Candidiasis of vulva and vagina; F17.210 Nicotine dependence, cigarettes, uncomplicated

== ENCOUNTER 2017-12-24 19:50 | Emergency (ER) | payer MEDICAID ==
[~2017-12-24] VITALS: Ht 167.6 cm; Wt 88.4 kg
[~2017-12-24 19:50] MED LIST changes: +MINIPRESS 1M1 MG/CAP PO; +NAPROSYN500 MG PO; +RT ALBUTER2.5 MG/0.5 IH; +ZITHROMAX 250M250 MG PO
[2017-12-24 19:53] VITALS: BP 105/59; TEMP 98
[2017-12-24 20:53] LABS: COLLECTION METHOD CLEAN CATCH
[2017-12-24 21:00] LABS: PH 5 (5-8); SQUAMOUS EPITHELIAL 0-2 /hpf; URINE APPEARANCE Cloudy; URINE BACTERIA None Seen /hpf; URINE BILIRUBIN Negative (NEGATIVE); URINE BLOOD Negative (NEGATIVE); URINE COLOR Yellow; URINE GLUCOSE Negative (NEGATIVE); URINE KETONE Negative (NEGATIVE); URINE LEUKOCYTE ESTERASE Negative (NEGATIVE); URINE NITRATE Negative (NEGATIVE); URINE PROTEIN(semi-quant) Negative (NEGATIVE); URINE UROBILINOGEN Negative (NEGATIVE); URINE WBC >50 /hpf
[2017-12-24] MEDS ORDERED: CEPHALEXIN500 M1 PO (21:45)
[2017-12-24] MEDS ORDERED: FLEXERIL 1010 MG/TAB PO (21:45)
[2017-12-24 22:16] VITALS: PULSE 80
== END 2017-12-24 22:16 | disposition home or self-care (01) ==
LOC: COL.ER 19:50
PROVIDERS: Emergency Medicine
DX: S80.11XA Contusion of right lower leg, initial encounter (principal); N39.0 Urinary tract infection, site not specified; F31.9 Bipolar disorder, unspecified; F41.9 Anxiety disorder, unspecified; F17.210 Nicotine dependence, cigarettes, uncomplicated; W10.9XXA Fall (on) (from) unspecified stairs and steps, initial encounter
CPT/HCPCS: J1885

== ENCOUNTER 2018-02-09 16:13 | Emergency (ER) | payer MEDICAID ==
[~2018-02-09] VITALS: Ht 165.1 cm; Wt 87.3 kg
[~2018-02-09 16:13] MED LIST changes: +FLEXERIL 1010 MG/TAB PO
[2018-02-09 16:19] VITALS: TEMP 97.1
[2018-02-09 17:00] LABS: COLLECTION METHOD CLEAN CATCH
[2018-02-09] MEDS ORDERED: AMBIEN 10MG10 MG PO (17:13)
[2018-02-09] MEDS ORDERED: PROZAC 20MG20 MG PO (17:13)
[2018-02-09] MEDS ORDERED: PROZAC60 MG PO (17:13)
[2018-02-09] MEDS ORDERED: PRILOSEC 20MG20 MG PO (17:13)
[2018-02-09] MEDS ORDERED: KLONOPIN 1MG1 MG PO (17:14)
[2018-02-09] MEDS ORDERED: RT ADVAIR 228 DISKUS IH (17:14)
[2018-02-09 17:20] LABS: PH 6 (5-8); SQUAMOUS EPITHELIAL 0-2 /hpf; URINE APPEARANCE Clear; URINE BACTERIA None Seen /hpf; URINE BILIRUBIN Negative (NEGATIVE); URINE BLOOD Negative (NEGATIVE); URINE COLOR Yellow; URINE GLUCOSE Negative (NEGATIVE); URINE KETONE Negative (NEGATIVE); URINE LEUKOCYTE ESTERASE Negative (NEGATIVE); URINE NITRATE Negative (NEGATIVE); URINE PROTEIN(semi-quant) Negative (NEGATIVE); URINE RBC 0-2 /hpf; URINE UROBILINOGEN Negative (NEGATIVE)
[2018-02-09 18:26] VITALS: BP 133/81
[2018-02-09 19:20] VITALS: PULSE 50
== END 2018-02-09 19:26 | disposition home or self-care (01) ==
LOC: COL.ER 16:13
PROVIDERS: Physician Assistant
DX: M76.61 Achilles tendinitis, right leg (principal); M54.9 Dorsalgia, unspecified; G89.29 Other chronic pain; M25.571 Pain in right ankle and joints of right foot; J44.9 Chronic obstructive pulmonary disease, unspecified; F41.9 Anxiety disorder, unspecified; F43.10 Post-traumatic stress disorder, unspecified; F31.9 Bipolar disorder, unspecified; F17.210 Nicotine dependence, cigarettes, uncomplicated; Z85.41 Personal history of malignant neoplasm of cervix uteri
CPT/HCPCS: J1885

== ENCOUNTER 2018-03-21 10:48 | Emergency (ER) | payer MEDICAID ==
[~2018-03-21] VITALS: Ht 167.6 cm; Wt 90.6 kg
[~2018-03-21 10:48] MED LIST changes: +PROZAC60 MG PO; +RT ADVAIR 228 DISKUS IH
[2018-03-21 10:51] VITALS: BP 125/81; TEMP 97.4
[2018-03-21] MEDS ORDERED: PREDNISONE20 MG PO (11:07)
[2018-03-21] MEDS ORDERED: ZITHROMAX Z PA250 MG PO (11:07)
[2018-03-21 11:15] VITALS: PULSE 86
== END 2018-03-21 11:15 | disposition home or self-care (01) ==
LOC: COL.ER 10:48
DX: J45.909 Unspecified asthma, uncomplicated (principal); K21.9 Gastro-esophageal reflux disease without esophagitis; F31.9 Bipolar disorder, unspecified; F17.210 Nicotine dependence, cigarettes, uncomplicated; Z90.710 Acquired absence of both cervix and uterus; Z98.51 Tubal ligation status; Z79.51 Long term (current) use of inhaled steroids; Z85.41 Personal history of malignant neoplasm of cervix uteri

== ENCOUNTER 2018-04-06 15:09 | Emergency (ER) | payer MEDICAID ==
[~2018-04-06] VITALS: Ht 167.6 cm; Wt 88.2 kg
[2018-04-06 15:37] VITALS: BP 135/91; PULSE 76; TEMP 98.3
== END 2018-04-06 16:07 | disposition left against medical advice (07) ==
LOC: COL.ER 15:09
DX: K62.5 Hemorrhage of anus and rectum (principal)

== ENCOUNTER 2018-05-03 23:01 | Emergency (ER) | payer MEDICAID ==
[~2018-05-03] VITALS: Ht 167.6 cm; Wt 92.3 kg
[2018-05-03 23:03] VITALS: TEMP 97.9
[2018-05-03 23:44] LABS: BASO % 0.4 % (0.0-2.0); EOS # 0.1 (0.0-0.7); EOS % 0.9 % (0-4.0); GRAN # 3.9 (1.4-6.5); GRAN % 51.8 % (42.2-75.2); HEMATOCRIT 38.6 % (37.0-47.0); HEMOGLOBIN 13.1 g/dl (12.5-16.0); LYMPH # 3.1 (1.2-3.4); LYMPH % 40.7 % (20.0-51.0); MEAN CELL VOLUME 96 fl (80.0-100.0); MEAN CORPUSCULAR HEMOGLOBIN 32 pg (27.0-31.0); MEAN CORPUSCULAR HGB CONC 34 g/dl (33.0-37.0); MEAN PLATELET VOLUME 8.9 fl (7.4-10.4); MONO # 0.4 (0.1-0.6); MONO % 5.9 % (1.7-9.3); PLATELET COUNT 269 K/mm3 (130-400); RED BLOOD COUNT 4.04 M/mm3 (4.10-5.30); REDCELL DISTRIBUTION WIDTH-CV 13.6 % (11.5-14.5)
[2018-05-03 23:46] LABS: INR 0.8 (0.8-3.0); PROTHROMBIN TIME 9.4 SECONDS (9.7-12.8)
[2018-05-03 23:50] LABS: ALANINE AMINOTRANSFERASE 23 U/L (9-52); ALBUMIN 4.2 gm/dL (3.5-5.0); ALKALINE PHOSPHATASE 100 U/L (50-136); ANION GAP 10 mmol/L (7-16); AST,SGOT 24 U/L (15-37); BILIRUBIN,TOTAL 0.2 mg/dL (0.0-1.0); BLOOD UREA NITROGEN 16 mg/dL (7-17); CARBON DIOXIDE 23 mmol/L (22-30); CHLORIDE 104 mmol/L (98-107); CREATININE, serum 1.15 mg/dL (0.52-1.25); GLUCOSE 80 mg/dL (74-106); POTASSIUM 3.9 mmol/L (3.4-5.0); SODIUM 137 mmol/L (137-145)
[2018-05-04 00:10] LABS: TROPONIN-I < 0.012 ng/mL (0.000-0.035)
[2018-05-04 00:40] VITALS: BP 124/76; PULSE 77
== END 2018-05-04 00:40 | disposition home or self-care (01) ==
LOC: COL.ER 23:01
PROVIDERS: Emergency Medicine
DX: R07.89 Other chest pain (principal); E78.5 Hyperlipidemia, unspecified; K21.9 Gastro-esophageal reflux disease without esophagitis; J44.9 Chronic obstructive pulmonary disease, unspecified; F41.9 Anxiety disorder, unspecified; F32.9 Major depressive disorder, single episode, unspecified; I10 Essential (primary) hypertension; F17.210 Nicotine dependence, cigarettes, uncomplicated

== ENCOUNTER 2018-05-10 12:35 | Emergency (ER) | payer MEDICAID ==
[~2018-05-10] VITALS: Ht 167.6 cm; Wt 95.0 kg
[2018-05-10 12:38] VITALS: BP 140/67; TEMP 97.9
[2018-05-10] MEDS ORDERED: KLONOPIN 1MG1 MG PO (14:26)
[2018-05-10 14:31] VITALS: PULSE 85
== END 2018-05-10 14:35 | disposition home or self-care (01) ==
LOC: COL.ER 12:35
DX: F41.9 Anxiety disorder, unspecified (principal); G89.29 Other chronic pain; M54.5 Low back pain; F31.9 Bipolar disorder, unspecified; F43.10 Post-traumatic stress disorder, unspecified; J44.9 Chronic obstructive pulmonary disease, unspecified; Z98.51 Tubal ligation status; F17.210 Nicotine dependence, cigarettes, uncomplicated; Z79.51 Long term (current) use of inhaled steroids
CPT/HCPCS: J1885

== ENCOUNTER 2018-06-13 12:32 | Emergency (ER) | payer MEDICAID ==
[~2018-06-13] VITALS: Ht 167.6 cm; Wt 95.1 kg
[2018-06-13 12:37] VITALS: BP 126/80; PULSE 94; TEMP 97.9
== END 2018-06-13 13:40 | disposition left against medical advice (07) ==
LOC: COL.ER 12:32
DX: R05 Cough (principal)

== ENCOUNTER 2018-08-24 21:37 | Emergency (ER) | payer MEDICAID ==
[~2018-08-24] VITALS: Ht 165.1 cm; Wt 92.7 kg
[2018-08-24 21:44] VITALS: TEMP 98.4
[2018-08-24 22:47] VITALS: BP 110/61; PULSE 94
== END 2018-08-24 22:47 | disposition home or self-care (01) ==
LOC: COL.ER 21:37
DX: H10.9 Unspecified conjunctivitis (principal); F17.210 Nicotine dependence, cigarettes, uncomplicated

== ENCOUNTER 2018-12-04 23:02 | Emergency (ER) | payer MEDICAID ==
[~2018-12-04] VITALS: Ht 167.6 cm; Wt 98.6 kg
[2018-12-04 23:16] VITALS: BP 137/77; PULSE 93; TEMP 97.6
[2018-12-05] MEDS ORDERED: NORCO 325 MG-51 TAB PO (17:31)
== END 2018-12-04 23:36 | disposition left against medical advice (07) ==
LOC: COL.ER 23:02
DX: S30.810A Abrasion of lower back and pelvis, initial encounter (principal); W01.0XXA Fall on same level from slipping, tripping and stumbling without subsequent striking against object, initial encounter; Y92.512 Supermarket, store or market as the place of occurrence of the external cause

== ENCOUNTER 2018-12-05 15:33 | Emergency (ER) | payer MEDICAID ==
[~2018-12-05] VITALS: Ht 167.6 cm; Wt 100.0 kg
[2018-12-05 15:47] VITALS: TEMP 98.2
[2018-12-05] MEDS ORDERED: NORCO 325 MG-51 TAB PO (17:31)
[2018-12-05 17:41] VITALS: BP 121/77; PULSE 76
== END 2018-12-05 17:40 | disposition home or self-care (01) ==
LOC: COL.ER 15:33
DX: S93.401A Sprain of unspecified ligament of right ankle, initial encounter (principal); S20.229A Contusion of unspecified back wall of thorax, initial encounter; S10.93XA Contusion of unspecified part of neck, initial encounter; M54.2 Cervicalgia; I10 Essential (primary) hypertension; M54.6 Pain in thoracic spine; F17.210 Nicotine dependence, cigarettes, uncomplicated; Z90.710 Acquired absence of both cervix and uterus; W19.XXXA Unspecified fall, initial encounter; Y92.512 Supermarket, store or market as the place of occurrence of the external cause
CPT/HCPCS: J1885

== ENCOUNTER 2019-01-08 19:38 | Emergency (ER) | payer MEDICAID ==
[~2019-01-08] VITALS: Ht 167.6 cm; Wt 95.5 kg
[2019-01-08 20:30] LABS: BASO % 0.3 % (0.0-2.0); EOS # 0.1 (0.0-0.7); EOS % 1.3 % (0-4.0); GRAN # 5.3 (1.4-6.5); GRAN % 60.9 % (42.2-75.2); HEMATOCRIT 38.7 % (37.0-47.0); HEMOGLOBIN 12.9 g/dl (12.5-16.0); LYMPH # 2.8 (1.2-3.4); LYMPH % 31.8 % (20.0-51.0); MEAN CELL VOLUME 95 fl (80.0-100.0); MEAN CORPUSCULAR HEMOGLOBIN 32 pg (27.0-31.0); MEAN CORPUSCULAR HGB CONC 33 g/dl (33.0-37.0); MEAN PLATELET VOLUME 8.7 fl (7.4-10.4); MONO # 0.5 (0.1-0.6); MONO % 5.5 % (1.7-9.3); PLATELET COUNT 252 K/mm3 (130-400); RED BLOOD COUNT 4.06 M/mm3 (4.10-5.30); REDCELL DISTRIBUTION WIDTH-CV 13.6 % (11.5-14.5)
[2019-01-08] MEDS ORDERED: BENADRYL25 M2 PO (20:51)
[2019-01-08] MEDS ORDERED: TESSALON PERLE200 MG PO (20:51)
[2019-01-08] MEDS ORDERED: ZITHROMAX500 M2 PO (20:51)
[2019-01-08 20:56] LABS: ALBUMIN 4.1 gm/dL (3.5-5.0); BILIRUBIN,TOTAL 0.3 mg/dL (0.0-1.0); CALCIUM 9.1 mg/dL (8.4-10.2); CREATININE, serum 0.66 (0.52-1.25); TOTAL PROTEIN 6.8 gm/dL (6.4-8.2)
[2019-01-08 21:17] VITALS: BP 101/65; PULSE 89; TEMP 98.4
== END 2019-01-08 21:26 | disposition home or self-care (01) ==
LOC: COL.ER 19:38
PROVIDERS: Emergency Medicine
DX: J20.9 Acute bronchitis, unspecified (principal); J45.909 Unspecified asthma, uncomplicated; F17.290 Nicotine dependence, other tobacco product, uncomplicated; F43.10 Post-traumatic stress disorder, unspecified; Z90.710 Acquired absence of both cervix and uterus; Z79.51 Long term (current) use of inhaled steroids

== ENCOUNTER 2019-01-20 00:51 | Emergency (ER) | payer MEDICAID ==
[~2019-01-20 00:51] MED LIST changes: +BENADRYL25 M2 PO; +TESSALON PERLE200 MG PO; +ZITHROMAX500 M2 PO
== END 2019-01-20 00:57 | disposition left against medical advice (07) ==
LOC: COL.ER 00:51
DX: Z72.89 Other problems related to lifestyle (principal)

== ENCOUNTER 2019-04-26 19:26 | Emergency (ER) | payer MEDICAID | END 2019-04-26 19:40 | disposition left against medical advice (07) | LOC: COL.ER 19:26 | DX: Z72.9 Problem related to lifestyle, unspecified (principal) ==

== ENCOUNTER 2019-05-05 13:59 | Emergency (ER) | payer MEDICAID ==
[~2019-05-05] VITALS: Ht 167.6 cm; Wt 104.5 kg
[2019-05-05 14:08] VITALS: BP 124/77; PULSE 85; TEMP 97.1
[2019-05-05] MEDS ORDERED: ZOLOFT 100MG100 MG PO (14:23)
[2019-05-05] MEDS ORDERED: PROZAC 20MG20 MG PO (14:23)
[2019-05-05] MEDS ORDERED: PRIL40 PO (14:24)
[2019-05-05] MEDS ORDERED: ATIVAN 1MG T1 MG/TAB PO (14:24)
[2019-05-05] MEDS ORDERED: ZYRTEC 10MG10 MG PO (14:25)
[2019-05-05] MEDS ORDERED: VISTARIL50 MG PO (14:25)
[2019-05-05] MEDS ORDERED: PREDNISONE20 MG PO (16:18)
[2019-05-05] MEDS ORDERED: IPRATROPIUM BROM3 M1 IH (16:18)
[2019-05-05] MEDS ORDERED: ZITHROMAX Z PA250 MG PO (16:18)
== END 2019-05-05 16:00 | disposition left against medical advice (07) ==
LOC: COL.ER 13:59
DX: J45.901 Unspecified asthma with (acute) exacerbation (principal); R51 Headache; F43.10 Post-traumatic stress disorder, unspecified; F17.210 Nicotine dependence, cigarettes, uncomplicated; Z90.710 Acquired absence of both cervix and uterus; Z98.890 Other specified postprocedural states
CPT/HCPCS: J1885

== ENCOUNTER 2019-05-16 09:33 | Day surgery (SDC) | payer MEDICAID ==
[~2019-05-16] VITALS: Ht 167.6 cm; Wt 107.8 kg
[~2019-05-16 09:33] MED LIST changes: +IPRATROPIUM BROM3 M1 IH; +VISTARIL50 MG PO; +ZOLOFT 100MG100 MG PO; +ZYRTEC 10MG10 MG PO
[2019-05-16] MEDS ORDERED: RT ADVAIR 128 DISKUS IH (09:43)
[2019-05-16 09:59] VITALS: BP 148/93; PULSE 78; TEMP 98.4
--- NOTE | 2019-05-16 10:08 | NUR ---
Patient reports waking up shortly after midnight and eating a chicken sandwich with cheese. Notified Dr. Orellana of last solid PO intake. Dr. Orellana will proceed with case.
[2019-05-16 11:30] VITALS: BP 135/81; PULSE 79; TEMP 98.3
--- NOTE | 2019-05-16 11:30 | NUR ---
Patient brought back to [facility] from endo suite. Pt ambulated to chair with assist. Placed on monitors, vital signs stable. Pt presents with intermittent cough. States she feels better following breathing treatment. IV infusing without difficulty. at bedside. Karis at bedside for report. IV to right wrist infiltrated, removed, warm compress applied. Call capone within reach, will continue to monitor.
[2019-05-16 11:45] VITALS: BP 132/83; PULSE 80
--- NOTE | 2019-05-16 11:45 | NUR ---
Patient is requesting chocolate pudding and grape juice. Vitals stable. Will continue to monitor.
[2019-05-16 12:00] VITALS: BP 123/57; PULSE 83
--- NOTE | 2019-05-16 12:00 | NUR ---
Patient states she feels ready to go home now. Vital signs stable. Denies any pain or nausea. IV to left wrist removed. Patient to get dressed at this time.
--- NOTE | 2019-05-16 12:15 | NUR ---
Discharge instructions reviewed with patient and fiance. All questions answered. pt brought down to lobby via wheel chair. Fiance to drive pt home
== END 2019-05-16 12:15 | disposition home or self-care (01) ==
LOC: SDCO 09:33
DX: K22.11 Ulcer of esophagus with bleeding (principal); K21.0 Gastro-esophageal reflux disease with esophagitis; K44.9 Diaphragmatic hernia without obstruction or gangrene; K29.60 Other gastritis without bleeding; K62.0 Anal polyp; K62.1 Rectal polyp; K64.8 Other hemorrhoids; Z79.899 Other long term (current) drug therapy; G43.909 Migraine, unspecified, not intractable, without status migrainosus; J44.9 Chronic obstructive pulmonary disease, unspecified; E78.00 Pure hypercholesterolemia, unspecified; F17.290 Nicotine dependence, other tobacco product, uncomplicated; F41.0 Panic disorder [episodic paroxysmal anxiety]
CPT/HCPCS: J2704; J3010

== ENCOUNTER 2019-07-21 13:05 | Emergency (ER) | payer MEDICAID ==
[~2019-07-21] VITALS: Ht 167.6 cm; Wt 90.9 kg
[~2019-07-21 13:05] MED LIST changes: +RT ADVAIR 128 DISKUS IH
[2019-07-21 14:07] LABS: BASO % 0.6 % (0.0-2.0); EOS # 0.1 (0.0-0.7); GRAN % 63.1 % (42.2-75.2); HEMATOCRIT 40.4 % (37.0-47.0); HEMOGLOBIN 13.2 g/dl (12.5-16.0); LYMPH # 1.3 (1.2-3.4); LYMPH % 27.4 % (20.0-51.0); MEAN CELL VOLUME 98 fl (80.0-100.0); MEAN CORPUSCULAR HEMOGLOBIN 32 pg (27.0-31.0); MEAN CORPUSCULAR HGB CONC 33 g/dl (33.0-37.0); MEAN PLATELET VOLUME 8.9 fl (7.4-10.4); MONO # 0.4 (0.1-0.6); MONO % 7.7 % (1.7-9.3); PLATELET COUNT 206 K/mm3 (130-400); RED BLOOD COUNT 4.12 M/mm3 (4.10-5.30); REDCELL DISTRIBUTION WIDTH-CV 15.3 % (11.5-14.5)
[2019-07-21 14:14] LABS: ALBUMIN 4.1 gm/dL (3.5-5.0); BILIRUBIN,TOTAL 0.6 mg/dL (0.0-1.0); CALCIUM 9.1 mg/dL (8.4-10.2); CREATININE, serum 0.66 (0.52-1.25); POTASSIUM 4.2 mmol/L (3.4-5.0); TOTAL PROTEIN 7.2 gm/dL (6.4-8.2)
[2019-07-21] MEDS ORDERED: BENTYL 20MG20 MG/TAB PO (15:01)
[2019-07-21 15:10] VITALS: BP 140/81; PULSE 86; TEMP 98
== END 2019-07-21 15:11 | disposition home or self-care (01) ==
LOC: COL.ER 13:05
PROVIDERS: Nurse Practitioner Primary Care
DX: K58.0 Irritable bowel syndrome with diarrhea (principal); F31.9 Bipolar disorder, unspecified; F43.10 Post-traumatic stress disorder, unspecified; F41.9 Anxiety disorder, unspecified; K21.9 Gastro-esophageal reflux disease without esophagitis; F17.210 Nicotine dependence, cigarettes, uncomplicated; Z90.710 Acquired absence of both cervix and uterus; Z79.51 Long term (current) use of inhaled steroids
CPT/HCPCS: J1885; J2405; J7030

== ENCOUNTER → 2019-08-26 | Outpatient (CLI) | payer MEDICAID ==
[~2019-08-26] MED LIST changes: +BENTYL 20MG20 MG/TAB PO; +LASIX 40MG TABL40 MG PO
== END ==
LOC: COL.VAS 11:15
DX: R60.9 Edema, unspecified (principal)

== ENCOUNTER 2019-08-28 22:53 | Emergency (ER) | payer MEDICAID ==
[~2019-08-28] VITALS: Ht 167.6 cm; Wt 110.9 kg
[~2019-08-28 22:53] MED LIST changes: -LASIX 40MG TABL40 MG PO
[2019-08-28 23:00] VITALS: TEMP 98.3
[2019-08-29 00:26] LABS: BASO % 0.5 % (0.0-2.0); EOS # 0.1 (0.0-0.7); EOS % 1.6 % (0-4.0); GRAN # 3.4 (1.4-6.5); GRAN % 55.5 % (42.2-75.2); HEMATOCRIT 36.7 % (37.0-47.0); HEMOGLOBIN 12.3 g/dl (12.5-16.0); LYMPH % 32.6 % (20.0-51.0); MEAN CELL VOLUME 100 fl (80.0-100.0); MEAN CORPUSCULAR HEMOGLOBIN 34 pg (27.0-31.0); MEAN CORPUSCULAR HGB CONC 34 g/dl (33.0-37.0); MEAN PLATELET VOLUME 8.7 fl (7.4-10.4); MONO # 0.6 (0.1-0.6); MONO % 9.6 % (1.7-9.3); PLATELET COUNT 285 K/mm3 (130-400); RED BLOOD COUNT 3.66 M/mm3 (4.10-5.30); REDCELL DISTRIBUTION WIDTH-CV 16.2 % (11.5-14.5)
[2019-08-29 00:40] LABS: ALANINE AMINOTRANSFERASE 24 U/L (4-34); ALBUMIN 3.9 gm/dL (3.5-5.0); ALKALINE PHOSPHATASE 112 U/L (50-136); ANION GAP 9 mmol/L (7-16); AST,SGOT 32 U/L (15-37); BILIRUBIN,TOTAL 0.4 mg/dL (0.0-1.0); BLOOD UREA NITROGEN 5 mg/dL (7-17); CALCIUM 9.1 mg/dL (8.4-10.2); CARBON DIOXIDE 30 mmol/L (22-30); CHLORIDE 97 mmol/L (98-107); CREATININE, serum 0.83 (0.52-1.25); GLUCOSE 83 mg/dL (74-106); POTASSIUM 3.6 mmol/L (3.4-5.0); SODIUM 136 mmol/L (137-145); TOTAL PROTEIN 6.9 gm/dL (6.4-8.2)
[2019-08-29 00:48] LABS: TROPONIN-I < 0.012 ng/mL (0.000-0.035)
[2019-08-29] MEDS ORDERED: LASIX 40MG TABL40 MG PO (01:50)
[2019-08-29 02:47] VITALS: BP 145/86; PULSE 94
== END 2019-08-29 02:46 | disposition home or self-care (01) ==
LOC: COL.ER 22:53
PROVIDERS: Physician Assistant
DX: M79.662 Pain in left lower leg (principal); M79.661 Pain in right lower leg; R60.0 Localized edema; I10 Essential (primary) hypertension; F32.9 Major depressive disorder, single episode, unspecified; F41.9 Anxiety disorder, unspecified; K21.9 Gastro-esophageal reflux disease without esophagitis; F17.210 Nicotine dependence, cigarettes, uncomplicated; Z90.710 Acquired absence of both cervix and uterus; Z79.51 Long term (current) use of inhaled steroids
CPT/HCPCS: J1650; J1940; J2270

== ENCOUNTER 2019-12-26 20:43 | Emergency (ER) | payer MEDICAID ==
[~2019-12-26] VITALS: Ht 167.6 cm; Wt 109.1 kg
[~2019-12-26 20:43] MED LIST changes: +LASIX 40MG TABL40 MG PO
[2019-12-26 21:03] VITALS: BP 152/96; TEMP 97.7
[2019-12-26 23:12] LABS: BASO % 0.3 % (0.0-2.0); EOS # 0.1 (0.0-0.7); EOS % 0.7 % (0-4.0); GRAN # 6.9 (1.4-6.5); GRAN % 75.1 % (42.2-75.2); HEMATOCRIT 41.4 % (37.0-47.0); HEMOGLOBIN 13.8 g/dl (12.5-16.0); LYMPH # 1.6 (1.2-3.4); MEAN CELL VOLUME 99 fl (80.0-100.0); MEAN CORPUSCULAR HEMOGLOBIN 33 pg (27.0-31.0); MEAN CORPUSCULAR HGB CONC 33 g/dl (33.0-37.0); MEAN PLATELET VOLUME 9.3 fl (7.4-10.4); MONO # 0.6 (0.1-0.6); MONO % 6.6 % (1.7-9.3); PLATELET COUNT 266 K/mm3 (130-400); REDCELL DISTRIBUTION WIDTH-CV 13.9 % (11.5-14.5)
[2019-12-26 23:21] LABS: ALBUMIN 4.3 gm/dL (3.5-5.0); BILIRUBIN,TOTAL 0.5 mg/dL (0.0-1.0); C-REACTIVE PROTEIN 1.1 mg/dL (0.0-0.9); CALCIUM 8.8 mg/dL (8.4-10.2); CREATININE, serum 0.68 (0.52-1.25); POTASSIUM 4.4 mmol/L (3.4-5.0); TOTAL PROTEIN 7.4 gm/dL (6.4-8.2)
[2019-12-27 00:07] LABS: COLLECTION METHOD CLEAN CATCH
[2019-12-27 00:20] LABS: MUCOUS Present /lpf; PH 6 (5-8); URINE APPEARANCE Turbid; URINE BACTERIA None Seen /hpf; URINE BILIRUBIN Negative (NEGATIVE); URINE BLOOD 3+ (NEGATIVE); URINE COLOR Amber; URINE GLUCOSE Negative (NEGATIVE); URINE KETONE Negative (NEGATIVE); URINE LEUKOCYTE ESTERASE 1+ (NEGATIVE); URINE NITRATE Negative (NEGATIVE); URINE PROTEIN(semi-quant) 2+ (NEGATIVE); URINE RBC >50 /hpf; URINE UROBILINOGEN Negative (NEGATIVE)
[2019-12-27] MEDS ORDERED: MACROBID 1100 MG/CAP PO (00:36)
[2019-12-27 00:52] VITALS: PULSE 94
== END 2019-12-27 00:52 | disposition home or self-care (01) ==
LOC: COL.ER 20:43
PROVIDERS: Emergency Medicine
DX: R51 Headache (principal); R39.198 Other difficulties with micturition
CPT/HCPCS: J1200; J1790; J1885; J7030

== ENCOUNTER 2020-01-08 12:50 | Emergency (ER) | payer MEDICAID ==
[~2020-01-08] VITALS: Ht 167.6 cm; Wt 109.1 kg
[2020-01-08 12:55] VITALS: TEMP 98
[2020-01-08 14:02] VITALS: BP 131/94
[2020-01-08] MEDS ORDERED: CRUTCHES MC (14:26)
[2020-01-08 14:34] VITALS: PULSE 92
== END 2020-01-08 14:34 | disposition home or self-care (01) ==
LOC: COL.ER 12:50
DX: S89.91XA Unspecified injury of right lower leg, initial encounter (principal); R05 Cough; J45.909 Unspecified asthma, uncomplicated; F41.9 Anxiety disorder, unspecified; F32.9 Major depressive disorder, single episode, unspecified; F17.210 Nicotine dependence, cigarettes, uncomplicated; Z79.01 Long term (current) use of anticoagulants; W06.XXXA Fall from bed, initial encounter; Y92.009 Unspecified place in unspecified non-institutional (private) residence as the place of occurrence of the external cause
CPT/HCPCS: J1885